=== PATIENT | male | born 1940 | race Two or more races ===

== ENCOUNTER 2016-12-01 11:05 | Outpatient (CLI) | payer MEDICARE, BC ==
--- NOTE | ~2016-12-01 | HEMODYNAMI ---
PATIENT:TENZIN YOUSSEF MEDICAL RECORD: [id number] : 44 LOCATION:[facility] ADMISSION DATE: 12/01/16 Generatedon:12/01/201615:08 Patient name: TENZIN YOUSSEF Patient #: [id number] SSN: : 1940 Date of study: 12/01/2016 Page: Of Hemodynamic Procedure Report Patient Data Patient Demographics Procedure consent was obtained First Name: TENZIN Gender: Male Last Name: DOMONIQUE : 1940 Middle Initial: GAVIN Age: 76 year(s) Patient #: [id number] Race: Other Additional ID: [id number] Contact details [address]: [address] [place] [address] State: [place] City: [place] Zip code: [address] Past Medical History Allergies Allergen Reaction Date Comments Reported Other allergy 12/01/2016 [facility] Admission Admission Data Admission Date: 12/01/2016 Admission Time: 11:05 Procedure Procedure Types Cath Procedure Diagnostic Procedure LHC LHC w/Coronaries PCI Procedure Coronary Stent Initial Miscellaneous Procedures Moderate Sedation up to 30 minutes Procedure Description Procedure Date Procedure Date: 12/01/2016 Procedure Start Time: 14:48 Procedure End Time: 15:08 Procedure Staff Name Function Vijay Stein MD Performing Physician Taye Burgos RT Scrub Brian Voss RN Nurse Zakiya Atkinson RT Monitor Procedure Data Cath Procedure Fluoroscopy Diagnostic fluoroscopy Total fluoroscopy Time: 3.1 time: 3.1 min min Diagnostic fluoroscopy Total fluoroscopy dose: 683 dose: 683 mGy mGy Contrast Material Contrast Material Type Amount (ml) Isovue 300 100 Entry Location Entry Primary Successful Side Size Upsize Upsize Entry Closure Succes sful Closure Location (Fr) 1 (Fr) 2 (Fr) Remarks Device Remarks Femoral Right 5 Fr 6 Fr Exoseal artery Short Estimated blood loss: 10 ml Diagnostic catheters Device Type Used For End Catheter Placement Cordis 5Fr JL 4.0 Left Coronary Catheter (MP) Angiography Cordis 5Fr 3DRC Catheter Right Coronary (MP) Angiography Cordis 5Fr Pigtail LV Angiography Catheter (MP) Procedure Complications No complications Procedure Medications Medication Administration Route Dosage 0.9% NaCl I.V. 100 ml/hr Oxygen NC 2 l/min Heparin Flush Bag added to field 2 bags (1000units/500ml NS) Lidocaine 2% added to field 20 Versed I.V. Fentanyl I.V. 100 mcg Heparin Bolus I.V. 5000 units Integrilin (Bolus I.V. 9 ml 2mg/ml) Plavix P.O. 600 mg Hemodynamics Rest Heart Rate: 59 (bpm) Pressure Samples Time Site Value (mmHg) Purpose Heart Use Rate(bpm) 14:53 LV 143/-10,14 EDP 64 14:54 AO 130/52(83) Pullback 63 14:54 LV 124/3,20 Pullback 63 Gradients Valve Time Site 1 Site 2 Mean SEP/DFP Peak To Heart Use (mmHg) (sec/min) Peak Rate (mmHg) (bpm) Aortic 14:54 LV AO 0 6 0 63 124/3,20 130/52(83) Calculations Valve P-P Mean Valve Index Valve Source Name Gradient Area Flow (cm2) Aortic 0 0 0 0 Snapshots Pre Cath Intra NCS Post Cath Vital Signs Time Heart Resp SPO2 etCO2 [id number] NIBP (mmHg) Rhythm Pain Sedation Rate (ipm) (%) (mmHg) (mmHg) Status Level (bpm) 14:36:00 62 17 99 0 0 155/84(129) NSR 0 (11) 10(A) , No pain 14:40:45 60 16 97 0 0 146/72(107) NSR 0 (11) 10(A) , No pain 14:45:28 64 29 98 0 0 132/88(114) NSR 0 (11) 10(A) , No pain 14:50:06 61 21 98 0 0 119/84(101) NSR 0 (11) 10(A) , No pain 14:55:24 58 18 97 0 0 142/76(117) NSR 0 (11) 10(A) , No pain 15:00:04 66 22 98 0 0 130/81(115) NSR 0 (11) 10(A) , No pain 15:04:45 66 16 98 0 0 129/83(103) NSR 0 (11) 10(A) , No pain Medications Time Medication Route Dose Verified Delivered Reason Notes Effectiveness by by 14:33:04 0.9% NaCl I.V. 100 Brian Brian Per physician ml/hr Bipin Voss RN RN 14:33:16 Oxygen NC 2 Brian Brian Per physician l/min Bipin Voss RN RN 14:33:30 Heparin Flush added 2 Brian Brian used for Bag to bags Bipin Voss procedure (1000units/500ml field RN RN NS) 14:33:49 Lidocaine 2% added 20ml Brian Brian for local to vial Bipin Voss anesthetic field RN RN 14:43:39 Versed I.V. Brian Brian for sedation Bipin Voss RN RN 14:43:49 Fentanyl I.V. 100 Brian Brian for sedation mcg Bipin Voss RN RN 14:57:32 Heparin Bolus I.V. 5000 Brian Brian for units Bipin Voss anticoagulation RN RN 14:57:57 Integrilin I.V. 9 ml Brian Brian for (Bolus 2mg/ml) Bipin Voss antiplatelet RN RN therapy 15:05:30 Plavix P.O. 600 Brian Brian for mg Bipin Voss antiplatelet RN RN therapy Procedure Log Time Note 14:08:37 Zakiya Counts RT(R) sent for patient. Start room use. 14:08:37 Time tracking: Regular hours 14:09:59 Plan of Care:Hemodynamics will remain stable., Cardiac rhythm will remain stable., Comfort level will be maintained., Respiratory function will remain adequate., Patient/ family verbilizes understanding of procedure., Procedure tolerated without complication., Recovers from procedure without complications.. 14:30:34 Patient received from Pre/Post Procedure Room to CCL 1 Alert and oriented. Tansferred to table in Supine position. 14:30:35 Warm blankets applied, and kae hugger turned on for patient comfort. 14:30:36 Correct patient and procedure confirmed by team. 14:30:37 Signed procedure consent form obtained from patient. 14:30:38 ECG and BP/O2 sat monitors applied to patient. 14:30:40 Full Disclosure recording started 14:33:04 0.9% NaCl 100 ml/hr I.V. was administered by Brian Voss RN; Per physician; 14:33:16 Oxygen 2 l/min NC was administered by Brian Lorigan RN; Per physician; 14:33:30 Heparin Flush Bag (1000units/500ml NS) 2 bags added to field was administered by Brian Voss RN; used for procedure; 14:33:49 Lidocaine 2% 20ml vial added to field was administered by Brian Voss RN; for local anesthetic; 14:35:01 Vital chart was started 14:35:28 Rhythm: sinus rhythm 14:36:45 H&P Date Dictated: 11/25/2016 Within 30 days and on chart., H&P Addendum completed by physician on day of procedure. (MUST COMPLETE FOR ALL OUTPATIENTS). 14:36:46 Pre-procedure instructions explained to patient. 14:36:47 Pre-op teaching completed and patient verbalized understanding. 14:38:03 Family in waiting room. 14:38:06 Patient NPO since Midnight. 14:38:26 Patient allergic to Other allergyVallium 14:38:30 Is the patient allergic to Iodine/contrast media? No. 14:38:35 Is patient on blood thinner?No 14:38:38 Patient diabetic? No. 14:38:50 Previous problem with sedation/anesthesia? No ? 14:38:53 Snore? Yes 14:38:55 Sleep apnea? No 14:38:56 Deviated septum? No 14:38:57 Opens mouth fully? Yes 14:38:57 Sticks out tongue? Yes 14:38:59 Airway obstruction? No ? 14:39:02 Dentures? No ? 14:39:05 Pre procedure: right dorsailis pedis pulse 2+ Normal; easily identifiable; not easily obliterated 14:39:08 Modified Manny's test Ulnar > 7 seconds. 14:39:19 IV patent on arrival in left hand with 0.9% NaCl at [facility]. 14:39:22 Lab results completed and on chart. 14:39:26 Right groin area was prepped with chlora-prep and draped in sterile fashion 14:39:28 Alarms reviewed by R. N. 14:39:29 Sharps counted by scrub and verified by R.N. 14:39:31 Use device set Femoral Dx 14:39:32 Acist Syringe opened to sterile field. 14:39:33 Bag Decanter opened to sterile field. 14:39:33 Medline Cath Pack opened to sterile field. 14:39:33 Terumo 5Fr [place] Sheath opened to sterile field. 14:39:34 St Darío 260cm J .035 wire opened to sterile field. 14:39:35 Acist Hand Control opened to sterile field. 14:39:35 Acist Manifold opened to sterile field. 14:39:36 Diagnostic Infinity 5Fr Multipack catheter opened to sterile field. 14:39:36 Tegaderm 4 x 4 opened to sterile field. 14:43:05 Final Timeout: patient, procedure, and site verified with staff and physician. All members of the team are in agreement. 14:43:07 Right groin site verified by team. 14:43:10 Physical assessment completed. ASA score P 2 - A patient with mild systemic disease as per Vijay Stein MD. 14:43:13 Sedation plan: IV Moderate Sedation Versed, Fentanyl 14:43:39 Versed I.V. was administered by Brian Voss RN; for sedation; 14:43:48 Baseline sample Acquired. 14:43:49 Fentanyl 100 mcg I.V. was administered by Brian Voss RN; for sedation; 14:48:35 Zero performed for pressure channel P1 14:48:40 Procedure started. 14:48:42 Local anesthetic to right femoral artery with Lidocaine 2% by Vijay Stein MD.INITIAL ACCESS ONLY 14:48:49 A 5 Fr sheath was inserted into the Right Femoral artery 14:48:57 A Cordis 5Fr JL 4.0 Catheter (MP) was advanced over the wire and used for Left Coronary Angiography. 14:49:05 Zero performed for pressure channel P1 14:49:09 Zero performed for pressure channel P1 14:49:12 Zero performed for pressure channel P1 14:49:15 Zero performed for pressure channel P1 14:49:18 Zero performed for pressure channel P1 14:49:22 Zero performed for pressure channel P1 14:50:52 Terumo 6Fr [place] Sheath opened to sterile field. 14:50:53 Hill Whisper J 300cm 0.014 guide wire opened to sterile field. 14:50:54 Merit BasixCompak Inflation Kit opened to sterile field. 14:51:07 Catheter removed. 14:51:31 A Cordis 5Fr 3DRC Catheter (MP) was advanced over the wire and used for Right Coronary Angiography. 14:52:12 Catheter removed. 14:52:17 A Cordis 5Fr Pigtail Catheter (MP) was advanced over the wire and used for LV Angiography. 14:53:42 LV gram done using AL 14:53:43 LV hemodynamics recorded. 14:53:46 Injector settings: Ml/sec: 10, Volume: 20, 14:53:54 EF : 55 % 14:54:16 Catheter removed. 14:54:26 Sheath upsized to a 6 Fr Short. 14:54:39 Cordis 6FR XBLAD 3.5 guide catheter opened to sterile field. 14:56:02 6 Fr XBLAD 3.5 guide catheter was inserted over the wire 14:56:19 PERCUTANEOUS ENTRY 19GA needle opened to sterile field. 14:57:32 Heparin Bolus 5000 units I.V. was administered by Brian Voss RN; for anticoagulation; 14:57:57 Integrilin (Bolus 2mg/ml) 9 ml I.V. was administered by Brian Voss RN; for antiplatelet therapy; 14:58:34 Whisper wire advanced. 15:02:14 Inflation Number: 1 A [place] OTW 3.0 x 15 stent was prepped and advanced across the Mid LAD. The stent was deployed at 14 ARTHUR for 0:46 (min:sec). 15:02:24 Stent catheter was removed intact over wire. 15:02:33 Wire removed. 15:02:33 Guide catheter removed. 15:02:42 Sheath removed intact; hemostasis achieved with Exoseal to the Right Femoral artery. 15:02:48 Procedure ended.(Physican Out) 15:03:19 Fluoroscopy time 03.10 minutes. 15:03:23 Fluoroscopy dose: 683 mGy 15:03:23 Flurop Dose total: 683 15:03:26 Contrast amount:Isovue 300 100ml. 15:03:27 Sharps counted by scrub and verified by R.N. 15:03:28 Insertion/operative site no bleeding no hematoma. 15:03:31 Post-op/insertion site Right Femoral artery dressed using a 4 x 4 and Tegaderm. 15:03:35 Post right femoral artery:stable, clean and dry 15:03:36 Post Procedure Pulses reassessed and unchanged 15:03:40 Post-procedure physical assessment completed. ASA score P 2 - A patient with mild systemic disease as per Vijay Stein MD. 15:03:43 Post procedure rhythm: unchanged. 15:03:45 Estimated blood loss: 10 ml 15:03:47 Post procedure instruction explained to patient.Patient verbalizes understanding. 15:03:48 Patient needs reinforcement of post procedure teaching. 15:03:54 Procedure type changed to Cath procedure, Diagnostic procedure, LHC, LHC w/Coronaries, PCI procedure, Coronary Stent Initial, Miscellaneous Procedures, Moderate Sedation up to 30 minutes 15:04:38 Procedure Complication : No complications 15:04:41 See physician's report for complete and final results. 15:04:54 Cordis 6Fr Exoseal opened to sterile field. 15:05:30 Plavix 600 mg P.O. was administered by Brian Voss RN; for antiplatelet therapy; 15:06:19 Procedure and supply charges have been captured, reviewed, submitted and are correct. 15:08:14 Vital chart was stopped 15:08:18 Report given to Pre/Post Procedure Room. 15:08:22 Patient transfered to Pre/Post Procedure Room with Stretcher. 15:08:35 Procedure ended. 15:08:35 Full Disclosure recording stopped 15:08:39 End room use (Document Last) Intervention Summary Intervention Notes Time ActionType Lesion and Equipment Action# Pressure Duration Attributes Used 15:02:14 Place stent Mid LAD [place] OTW 1 14 00:46 3.0 x 15 stent Device Usage Item Name Manufacture Quantity Catalog Hospital Part Current Minima l Lot# / Number Charge Number Stock Stock Serial# Code Acist Acist 1 29934 656068 749723 865815 20 Syringe [employer] Inc Bag Decanter Microtek 1 2002S 187977 07929 508480 5 Medical [employer]. Medline Cath Cardinal 1 [id number] 414987 41881 675149 5 Pack Dynamixyz Terumo 5Fr Terumo 1 SCR008 674947 283023 623406 [address] Darío 1 388320 401522 566796 627297 30 260cm J .035 wire Acist Hand Acist 1 88005 829424 849644 828754 5 Control [employer] Inc Acist Acist 1 35962 656065 476384 070270 5 Manifold Medical Systems Inc Diagnostic Cardinal 1 PD4867 681156 76178 495364 30 Infinity 5Fr Dynamixyz Multipack catheter Tegaderm 4 x 3M 1 1626W 795559 191880 033931 5 4 Cordis 5Fr Cardinal 1 049813 5 JL 4.0 Health Catheter (MP) Terumo 6Fr Terumo 1 [id number] 340433 138865 250136 40 [place] Sheath [place] 1 [id number] 754899 777489 815020 5 Whisper J Vascular 300cm 0.014 guide wire Merit Merit 1 TW4594 935993 665559 469558 15 Ning by [employer] Medical Inflation Kit Cordis 5Fr Cardinal 1 709434 5 3DRC Health Catheter (MP) Cordis 5Fr Cardinal 1 324449 5 Pigtail Health Catheter (MP) Cordis 6FR Cardinal 1 [id number] 175437 674767 911809 10 XBLAD 3.5 Health guide catheter PERCUTANEOUS Cook Medical 1 [id number] 159612 820361 5 ENTRY 19GA needle Cosmo OTW 3.0 Medtronic 1 [id number] 894953 471863 108829 5 [id number] x 15 stent Cordis 6Fr Cardinal 1 EX600 870069 726502 587007 10 [facility] Dynamixyz Signature Audit [place] Stage Time Signature Unsigned Intra-Procedure 12/01/2016 Zakiya 3:08:49 PM Counts RT(R) Signatures Monitor : Zakiya Signature : Counts RT Date : Time : [address] [place] [address]
[2016-12-01] MEDS ORDERED: DYAZIDE 37.5/251 CAP PO (11:43)
[2016-12-01] MEDS ORDERED: PRILOSEC10 M1 PO (11:43)
[2016-12-01] MEDS ORDERED: MOBIC7.5 MG PO (11:44)
[2016-12-01] MEDS ORDERED: VYTORIN 10-801 UDTAB PO (11:44)
[2016-12-01] MEDS ORDERED: TRAVATAN Z2.5 ML EACH EYE (11:44)
[2016-12-01 11:52] VITALS: BP 151/80; BMI 33.5
[2016-12-01 12:04] LABS: BASOPHILS 0.6 % (0-2); EOSINOPHILS 3.5 % (0-7); HEMATOCRIT 44.3 % (42.0-54.0); IMMATURE GRANULOCYTES 0.6 % (0-5); LYMPHOCYTES 22.8 % (15-50); MCH 26.9 pg (26.0-34.0); MCHC 33.9 g/dL (31.0-37.0); MCV 79.4 fL (80.0-100.0); MEAN PLATELET VOLUME 10.5 fL (7.4-10.4); MONOCYTES 8.7 % (2-11); NEUTROPHILS 63.8 % (40-80); PLATELET COUNT 105 10x3/uL (130-400); RBC 5.58 10x6/uL (4.20-6.10); RDW 14.3 % (11.5-14.5); WBC 8.6 10x3/uL (4.8-10.8)
[2016-12-01 12:16] LABS: ANION GAP 14.1 mmol/L (8-16); CALCIUM 9.6 mg/dL (8.5-10.1); CARBON DIOXIDE 24.8 mmol/L (21.0-32.0); CREATININE - SERUM 1.5 mg/dL (0.6-1.3); POTASSIUM - SERUM 3.9 mmol/L (3.5-5.1)
[2016-12-01] MEDS ORDERED: PLAVIX75 MG PO (15:17)
--- NOTE | 2016-12-01 15:30 | NUR ---
2L NC, NO RESP DISTRESS NOTED. RIGHT GROIN 6F EXOSEAL CDI, NO BLEEDING OR HEMATOMA NOTED. NO C/O CHEST PAIN OR NAUSEA. VSS. AT BEDSIDE, CALL LIGHT WITHIN REACH.
--- NOTE | 2016-12-01 16:15 | NUR ---
RESTING QUIETLY WITH EYES CLOSED. 2L NC, NO RESP DISTRESS. RIGHT GROIN 6F EXOSEAL CDI, NO BLEEDING NOTED. NO C/O PAIN AT THIS TIME. WILL CONTINUE TO MONITOR.
--- NOTE | 2016-12-01 16:45 | NUR ---
RESTING QUIETLY WITH EYES CLOSED. VSS. 2L NC, NO RESP DISTRESS. RIGHT GROIN 6F EXOSEAL CDI, NO BLEEDING OR HEMATOMA NOTED. CALL LIGHT WITHIN REACH.
--- NOTE | 2016-12-01 17:15 | NUR ---
SANDWICH TRAY AND DRINK GIVEN. NO C/O NAUSEA. RIGHT GROIN 6F EXOSEAL CDI, NO BLEEDING OR HEMATOMA. DENIES ANY PAIN AT THIS TIME. WILL CONTINUE TO MONITOR.
--- NOTE | 2016-12-01 18:15 | NUR ---
HOB ELEVATED 30 DEGREES. RIGHT GROIN 6F EXOSEAL CDI, NO BLEEDING NOTED.
--- NOTE | 2016-12-01 18:40 | NUR ---
RIGHT AC PIV D/C'D WITH CATHETER INTACT, BAND AID TO SITE. UP TO BEDSIDE TO GET DRESSED.
--- NOTE | 2016-12-01 18:50 | NUR ---
VOIDED IN URINAL. DISCHARGE INSTRUCTIONS GIVEN, VERBALIZED UNDERSTANDING.
--- NOTE | 2016-12-01 19:00 | NUR ---
TAKEN OUT VIA WHEELCHAIR BY CATH HEAT TREAT OPERATOR. LEFT FACILITY WITH FAMILY MEMBER AND ALL PERSONAL BELONGINGS.
--- NOTE | 2016-12-02 07:50 | OP ---
PATIENT NAME: TENZIN YOUSSEF MEDICAL RECORD: [id number] :44 LOCATION:D.CAT ADMISSION DATE: SURGEON: JAGRUTI WYLIE MD DATE OF OPERATION: 12/01/2016 PROCEDURE: Left heart catheterization, selective coronary angiography, right femoral approach. CATHETERS: A JL4 left and right Edwin, 5/4 pig. The procedure was well tolerated. The patient returned to the harris. Sheath removed. ExoSeal device was placed. FINDINGS: Left ventriculography in 30-degree AL view: Normal wall motion, normal systolic function. CORONARY ANATOMY. LEFT MAIN: Left main is free of disease. LAD: The area of previous stenting is widely patent. Between the 2 stents there was discrete 80% stenosis with some haziness. CIRCUMFLEX: Circumflex; codominant system, free of disease. RIGHT CORONARY ARTERY: Codominant system, luminal irregularities. IMPRESSION: Culprit left anterior descending. PLAN: Intervention momentarily. DESCRIPTION OF PROCEDURE: 5-Malian sheath was changed for 6-Malian sheath. EBU 3 5 guiding catheter provided good guide catheter support followed by 300 cm Whisper wire was placed across the totally occluded LAD, distal portion of the vessel. Stent deployed was a 3.0 x 15 mm Cosmo drug-eluting stent to 14 atmospheres for 45 seconds. Final injection shows excellent resolution of 80% stenosis, no significant residual. ROBER flow was 3 throughout the procedure. Sheath was closed with ExoSeal device. Plavix was loaded in the lab. Integrilin was used during the case. TRANSINT:[id number] Voice Confirmation ID: [id number] DOCUMENT ID: [id number] JAGRUTI WYLIE MD at 0750 CC: [id number] DICTATION DATE: 12/01/16 1509 CONCESSION SUPERVISOR: 12/01/16 1641 DEP CLI 12/01/16 [facility] [address] [id number]
== END 2016-12-01 19:00 | disposition home or self-care (01) ==
LOC: D.CATH 11:05
PROVIDERS: Internal Medicine Interventional Cardiology
DX: I25.119 Atherosclerotic heart disease of native coronary artery with unspecified angina pectoris (principal); Z95.5 Presence of coronary angioplasty implant and graft; Z01.812 Encounter for preprocedural laboratory examination
CPT/HCPCS: 93458; C9600

== ENCOUNTER → 2018-07-20 08:51 | Outpatient (CLI) | payer MEDICARE, OTHER ==
--- NOTE | ~2018-07-20 | EC ---
PATIENT:TENZIN YOUSSEF DATE OF SERVICE: 07/20/18 SEX: M MEDICAL RECORD: [id number] DATE OF : 44 [facility] AGE OF PAT[facility]: 78 ADMISSION DATE: 07/20/18 REFERRING PHYSICIAN: INTERPRETING PHYSICIAN: JAGRUTI WYLIE MD ECHOCARDIOGRAM REPORT ECHO CHARGES 4 ECHO COMPLETE Date: 07/20/18 CLINICAL DIAGNOSIS: SAMUELS/MURMUR H/O CAD/HTN ECHOCARDIOGRAPHIC MEASUREMENTS (adult normal given) AC root (d.<3.7cm) 3.8 cm LV Septum d (<1.2 cm> 1.2 cm Valve Excursion 2.2 cm LV Septum (systole) 1.8 cm Left Atria (s.<4.0cm> 3.7 cm LVPW d(<1.2cm) 1.4 cm RV (d.<2.3cm) 2.8 cm LVPW (sytole) 2.0 cm LV diastole(<5.6CM) 5.9 cm MV E-F(>70mm/sec) cm LV systole 3.1 cm LVOT Diameter 2.1 cm MV exc.(>10mm) cm Est.ejection fraction (50-75%) % DOPPLER: LVIT cm/sec A 69.0 cm/sec E 54.0 cm/sec LA cm/sec RVSP 43.0 mmHg LVOT 78.0 cm/sec AOP1/2T m/s Asc. Ao 111.0cm/sec RVOT 59.0 cm/sec RA cm/sec PA 84.0 cm/sec AV Gradient Peak 4.9 mmHg AV Mean 2.3 mmHg AV Area 2.4 cm MV Gradient Peak 2.3 mmHg MV Mean 0.50 mmHg MV Area cm COMMENTS: OP - HC Manufacturing Operator: 1 KEVEN WHITLOCKOE Boot Turner: 3 Dr. Stein TAPE# PACS Pericardial Effusion N DATE OF SERVICE: Adequate 2D, color flow, spectral Doppler, and M-mode. Mild LVH. LV internal dimension is normal. Wall motion is normal. EF is greater than or equal to 55%. Aortic valve is tricuspid. No evidence of stenosis by Doppler interrogation. Left atrium is normal at 3.7 cm. Mitral valve shows mitral annular calcification. Mild MR. Right-sided chambers are grossly normal. Mild TR. TRANSINT:[id number] Voice Confirmation ID: [id number] DOCUMENT ID: [id number] ECHOCARDIOGRAM REPORT [id number] TENZIN YOUSSEF GREGORY A MD CC: [id number] DICTATION DATE: 07/22/18 1338 FREIGHT WEIGHER: 07/22/18 1525 DEP CLI 07/20/[address] [address]
[~2018-07-20 08:51] MED LIST: DYAZIDE 37.5/251 CAP PO; MOBIC7.5 MG PO; PLAVIX75 MG PO; PRILOSEC10 M1 PO; TRAVATAN Z2.5 ML EACH EYE; VYTORIN 10-801 UDTAB PO
== END | disposition home or self-care (01) ==
LOC: D.HCCARDIO 08:51
PROVIDERS: ATTEND Internal Medicine Interventional Cardiology
DX: I25.10 Atherosclerotic heart disease of native coronary artery without angina pectoris (principal)

== ENCOUNTER → 2019-10-11 08:24 | Outpatient (CLI) | payer MEDICARE, OTHER | END | disposition home or self-care (01) | LOC: D.HCCECHO 08:24 | PROVIDERS: ATTEND Internal Medicine Interventional Cardiology | DX: I25.10 Atherosclerotic heart disease of native coronary artery without angina pectoris (principal) ==

== ENCOUNTER → 2020-08-08 10:58 | Outpatient (CLI) | payer MEDICARE, OTHER | END | disposition home or self-care (01) | LOC: D.HCCECHO 10:58 | PROVIDERS: ATTEND Internal Medicine Interventional Cardiology | DX: I10 Essential (primary) hypertension (principal) ==